=== PATIENT | female | born 1955 | race Caucasian/White ===

== ENCOUNTER 2017-03-22 10:07 | Outpatient (CLI) | payer BC | END 2017-03-22 20:13 | disposition home or self-care (01) | LOC: SMA 10:07 | PROVIDERS: ATTEND Family Medicine | DX: Z12.31 Encounter for screening mammogram for malignant neoplasm of breast (principal) | CPT/HCPCS: G0202 ==

== ENCOUNTER 2018-08-01 10:06 | Outpatient (CLI) | payer BC | END 2018-08-01 19:53 | disposition home or self-care (01) | LOC: SMA 10:06 | PROVIDERS: ATTEND Physician Assistant Medical | DX: Z12.31 Encounter for screening mammogram for malignant neoplasm of breast (principal) | CPT/HCPCS: 77067 ==

== ENCOUNTER 2019-04-10 13:17 | Emergency (ER) | payer BC ==
[~2019-04-10] VITALS: Ht 162.6 cm; Wt 57.2 kg
[2019-04-10 13:17] VITALS: BP_SYST 154
--- NOTE | 2019-04-10 13:47 | NUR ---
Patient to ER bed 07 for evaluation. Side rails up. Report given to Emre HAHN.
--- NOTE | 2019-04-10 13:48 | NUR ---
Patient is awake, alert, and orienteed x4. Patient was peeling potatoes today and sliced her finger. She presents with laceration to left index finger, stinging pain.
--- NOTE | 2019-04-10 13:50 | NUR ---
ER DARA Koenig examining patient.
[2019-04-10] MEDS ORDERED: DIPH-TET-PERTUS Vaccine 0.5 ML VIAL (ADACEL) I.M. ONE (14:00)
[2019-04-10] MEDS ORDERED: BACITRACIN 1 GM OINT TP ONE (14:00)
[2019-04-10] MEDS ORDERED: IBUPROFEN 600 MG TABLET PO ONE (14:00)
[2019-04-10 14:30] VITALS: BP_SYST 138
--- NOTE | 2019-04-10 14:30 | NUR ---
Patient given written and verbal discharge instructions and verbalizes understanding. ER MD discussed with patient the results and treatment provided. Patient in stable condition. ID arm band removed. Rx of bacitracin given. Patient educated on pain management and to follow up with PMD. Pain Scale 0/10. Opportunity for questions provided and answered. Medication side effect fact sheet provided.
== END 2019-04-10 14:30 | disposition home or self-care (01) ==
LOC: SED 13:17
DX: S61.211A Laceration without foreign body of left index finger without damage to nail, initial encounter (principal); R03.0 Elevated blood-pressure reading, without diagnosis of hypertension; W45.8XXA Other foreign body or object entering through skin, initial encounter; Y93.89 Activity, other specified; Y92.89 Other specified places as the place of occurrence of the external cause; Y99.8 Other external cause status
CPT/HCPCS: 90715; 99283

== ENCOUNTER 2020-04-21 09:51 | Outpatient (CLI) | payer BC | END 2020-04-21 21:03 | disposition home or self-care (01) | LOC: SMA 09:51 | PROVIDERS: ATTEND Family Medicine | DX: Z12.31 Encounter for screening mammogram for malignant neoplasm of breast (principal) | CPT/HCPCS: 77067 ==

== ENCOUNTER 2021-08-03 14:33 | Outpatient (CLI) | payer BC | END 2021-08-03 20:50 | disposition home or self-care (01) | LOC: SMA 14:33 | PROVIDERS: ATTEND Family Medicine | DX: Z12.31 Encounter for screening mammogram for malignant neoplasm of breast (principal) | CPT/HCPCS: 77067 ==

== ENCOUNTER 2023-04-20 09:29 | Outpatient (CLI) | payer OTHER, MEDICARE | END 2023-04-20 18:11 | disposition home or self-care (01) | LOC: SMA 09:29 | PROVIDERS: ATTEND Physician Assistant Medical | DX: Z12.31 Encounter for screening mammogram for malignant neoplasm of breast (principal) | CPT/HCPCS: 77067 ==